=== PATIENT | female | born 1955 | race Caucasian/White ===

== ENCOUNTER → 2017-04-07 | Day surgery (SDC) | payer BC ==
[~2017-04-07] VITALS: Ht 157.5 cm; Wt 81.6 kg
[~2017-04-07] MED LIST: ACETAMINOPHEN 1000 MG/100 ML VIAL IV ONE; ACETAMINOPHEN/HYDROcodone 325 MG/5 MG TAB PO PRN; APREPITANT 40 MG CAP ONE; BUPIVACAINE/EPINEPHRINE 0.5% 50 ML VIAL ONE; CHLORHEXIDINE GLUCONATE 2 % 1 PACK (2 CLOTHS) TOPICAL PRN; CHLORHEXIDINE GLUCONATE 4% SOLN 120 ML BTL TOPICAL SCH; CLON0.1T PO; DO NOT ADM ANY ANTICOAGULANT DRUGS PRN; GENTAMICIN SULFATE 80 MG/2 ML VIAL ONE; HYDR25TA5 PO; INSULIN HUMAN REGULAR 1,000 UNITS/10 ML VIAL SQ PRN; KETOROLAC TROMETHAMINE 30 MG/ML (IVP) VIAL IVP ONE; LACTATED RINGER'S 1000 ML INJ 1,000 ML IV ONE; LACTATED RINGER'S 1000 ML IV PRN; METO100T9 PO; METOPROLOL TARTRATE 25 MG TAB PO PRN; MIDAZOLAM HCL 2 MG/2 ML VIAL ONE; MORPHINE SULFATE 4 MG/ML INJ IV PUSH PRN; NORC5TAB PO; ONDANSETRON HCL 4 MG/2 ML VIAL IV PRN; ONDANSETRON HCL 4 MG/2 ML VIAL IV PUSH ONE; PHENYLEPH/NS 1000 MCG/10 ML SYR IV ONE; POVIDONE IODINE 5% (ANTISEPSIS KIT) 4 APPLICATIONS EACH NARE PRN; PROPOFOL 200 MG/20 ML AMP IV ONE; SODIUM CHLORID 0.9% 500 ML IV PRN; SODIUM CHLORIDE 0.9% FLUSH 10 ML FLUSH IV FLUSH PRN; SODIUM CHLORIDE 0.9% FLUSH 10 ML FLUSH IV FLUSH SCH; VANCOMYCIN 1000 MG/NS 250 ML (for <70 kg) IV SCH; ceFAZolin 2 GM PREMIX 50 ML IV SCH; ePHEDrine/NS 25 MG/5 ML SYR IV ONE
[2017-04-07 10:16] VITALS: BP 199/81; PULSE 59; RESP 16; TEMP 98.2; O2SAT 97
--- NOTE | 2017-04-07 14:02 | PD.OP ---
cc: Charles Reza Jr., MD Operative Report Date of Surgery: Apr 07, 2017 Preoperative Diagnosis: Right carpal tunnel syndrome Postoperative Diagnosis: Same Procedure: Right open carpal tunnel release Anesthesia: Gen. Surgeon: Charles Reza 3Rd Mate(s): ENRICO Sinclair The surgical procedure was assisted by my Advanced Registered Nurse Practitioner. My PATIENT SERVICES MANAGER presence was necessary throughout this case for the manipulation and positioning of the surgical extremity. My PATIENT SERVICES MANAGER was assisting me throughout the duration of this procedure. The skill set of an Advance Registered Nurse Practitioner was medically necessary to complete this procedure. During the surgical case, the surgical services assistant was working at the back table and the Advance Registered Nurse Practitioner was directly assisting me. Resident Surgeon: None Operation and Findings: INDICATION FOR PROCEDURE: This patient is a 61-year-old female with clinical carpal tunnel syndrome, which was comfirmed on EMG. She failed conservative treatment such as activity modification, rest, NSAIDS and night splint. she is scheduled for the above-mentioned procedures. The planned procedures were discussed with the patient including the associated risks. The risks included but are not limited to bleeding, infection, nerve damage, failure to heal, possible need for reoperation, possible recurrence, or any associated risk of the anesthesia. He voiced understanding and agreed to proceed as planned. DESCRIPTION OF PROCEDURE: The patient was identified in the holding area and the right upper extremity was identified by the surgeon's initials. Informed consent was obtained. The patient was then brought to the operating room and transferred to the operating table in supine position. Time-out was then performed at which point the surgeon, nursing staff, and anesthesia staff all confirmed the correct operative site and procedure. After adequate general LMA anesthesia was obtained, The RIGHT upper extremity was then prepped and draped in the usual sterile fashion. Planned skin incision was marked along the base of the patient's palm. Skin incision was then made and dissection was carried down with scalpel to the level of the palmar fascia which was sharply divided by the skin incision. Bleeding points were identified with electrocautery using bipolar electrocautery. Retractors were then placed to allow visualization of the distal extent of the transverse carpal ligament, and this was then divided longitudinally under direct vision. Metzenbaum scissors were used to dissect distal to this area to confirm the absence of any remaining crossing obstructing fibrous band. Retractors were then replaced proximally to allow visualization of proximal extent of the transverse carpal ligament and the release was continued proximally until complete release was performed. This was confirmed visually and with palpation. Next, Metzenbaum scissors were used to dissect anteroposterior adjacent antebrachial fascia, and this was divided longitudinally under direct vision. Carpal canal was then inspected. The median nerve was flattened and injected. No other abnormalities were noted. The tourniquet was then deflated and hemostasis was obtained. Wounds were then irrigated with normal saline and antibiotic additive. Skin incision was then closed with interrupted 2-0 nylon suture. The wound was then dressed with xeroform, 4 x 4s and a well padded short volar soft dressing. The patient was then awakened, extubated, and transferred over to PACU in stable condition. There were no intraoperative or immediate postoperative complications. All counts were reported as correct. Charles Reza Jr., MD Apr 07, 2017 14:02
[2017-04-07 15:10] VITALS: BP 142/76; PULSE 58; RESP 18; TEMP 97.2; O2SAT 96
--- NOTE | 2017-04-07 16:21 | EKG ---
Date Performed: 04/07/2017 Time Performed: 11:01:02 PTAGE: 61 years EKG: SINUS BRADYCARDIA BORDERLINE ECG NO PREVIOUS TRACING DOCTOR: Rafael Bhandari Interpretating Date/Time 04/07/2017 16:18:39
== END | disposition home or self-care (01) ==
LOC: HSDC 09:23
PROVIDERS: ATTEND Orthopaedic Surgery
DX: G56.01 Carpal tunnel syndrome, right upper limb (principal); Z01.810 Encounter for preprocedural cardiovascular examination
CPT/HCPCS: 01810; 64721; 86850; 86900; 86901; 93005; J0131; J0690; J1580; J2250; J2370; J2405; J3010; J3370; J7050; J7120; J8501